=== PATIENT | male | born 1965 | race Hispanic/Latino ===

== ENCOUNTER 2020-08-16 13:00 | Emergency (ER) | payer SELFPAY ==
[2020-08-16] MEDS ORDERED: LORazepam 2 MG/ML VIAL IV PRN ×3 (13:23)
--- NOTE | 2020-08-16 13:28 | Emergency Department Report ---
ED General Adult HPI - General Chief complaint: Altered Mental Status Stated complaint: HEAD INJURY PASSED OUT Time Seen by Provider: 08/16/20 13:15 Source: patient Mode of arrival: Ambulatory Limitations: Altered Mental Status - History of Present Illness Initial comments: Patient is 55-year-old male with no significant past medical history except for chronic alcohol abuse. Patient brought to the emergency room by his friend from work. Patient stated that he does not remember anything except that he went to work this morning and he was in his office. Friends told triage nurse that patient tried to quit alcohol cold turkey today. Patient friend stated that patient fell ground-level and had seizure. Patient stated that he does not remember any of that. Patient is currently shaking however he is alert, oriented x3 in no acute distress. Patient admitted that he tried to quit. He stated that he did not drink today as he usually drinks in the morning. Patient stated that he had 2 DUI before and he have to stop drinking. Patient stated that he had history of some visual hallucination but not today. Patient denied any suicidal or homicidal ideation. No auditory hallucination. - Related Data Allergies Allergy/AdvReac Type Severity Reaction Status Date / Time Penicillins Allergy Hives Verified 08/16/20 13:08 Sulfa (Sulfonamide Allergy Hives Verified 08/16/20 13:09 Antibiotics) ED Review of Systems ROS: Stated complaint: HEAD INJURY PASSED OUT Other details as noted in HPI Comment: All other systems reviewed and negative Constitutional: denies: chills, fever Respiratory: denies: cough, shortness of breath, SOB with exertion, SOB at rest, wheezing Cardiovascular: denies: chest pain, palpitations Gastrointestinal: denies: abdominal pain, nausea, vomiting, diarrhea, constipation, hematemesis, melena, hematochezia Musculoskeletal: denies: back pain Neurological: denies: headache, weakness, numbness, paresthesias, confusion, abnormal gait ED Past Medical Hx - Past Medical History Previous Medical History?: No - Surgical History Past Surgical History?: No ED Physical Exam - General Limitations: Altered Mental Status General appearance: alert, in no apparent distress, anxious - Head Head exam: Present: normocephalic, normal inspection, other (Contusion.) - Eye Eye exam: Present: normal appearance - ENT ENT exam: Present: normal exam, normal orophraynx, mucous membranes moist - Neck Neck exam: Present: normal inspection, full ROM. Absent: tenderness, meningismus, lymphadenopathy, thyromegaly - Respiratory Respiratory exam: Present: normal lung sounds bilaterally - Cardiovascular Cardiovascular Exam: Present: tachycardia - GI/Abdominal GI/Abdominal exam: Present: soft, normal bowel sounds. Absent: distended, tenderness, guarding, rebound, rigid, diminished bowel sounds, organomegaly, mass, bruit, pulsatile mass, hernia - Extremities Exam Extremities exam: Present: normal inspection, full ROM, normal capillary refill. Absent: tenderness, pedal edema, joint swelling, calf tenderness - Back Exam Back exam: Present: normal inspection, full ROM. Absent: CVA tenderness (R), CVA tenderness (L), muscle spasm, paraspinal tenderness, vertebral tenderness - Neurological Exam Neurological exam: Present: alert, oriented X3, CN II-XII intact, normal gait, reflexes normal - Psychiatric Psychiatric exam: Present: anxious. Absent: agitated, homicidal ideation, suicidal ideation - Skin Skin exam: Present: warm, intact, normal color ED Course Vital Signs 08/16/20 13:05 Temperature 98.8 F Pulse Rate 114 H Respiratory 18 Rate Blood Pressure 173/100 O2 Sat by Pulse 95 Oximetry ED Medical Decision Making - Lab Data Result diagrams: 08/16/20 13:40 08/16/20 13:40 - EKG Data -: EKG Interpreted by Ks EKG shows normal: sinus rhythm Rate: tachycardia - EKG Data Interpretation: no acute changes - Radiology Data Radiology results: report reviewed - Medical Decision Making Patient is 55-year-old male with no significant past medical history except for chronic alcohol abuse. Patient brought to the emergency room by his friend from work. Patient stated that he does not remember anything except that he went to work this morning and he was in his office. Friends told triage nurse that patient tried to quit alcohol cold turkey today. Patient friend stated that patient fell ground-level and had seizure. Patient stated that he does not remember any of that. Patient is currently shaking however he is alert, oriented x3 in no acute distress. Patient admitted that he tried to quit. He stated that he did not drink today as he usually drinks in the morning. Patient stated that he had 2 DUI before and he have to stop drinking. Patient stated that he had history of some visual hallucination but not today. Patient denied any suicidal or homicidal ideation. No auditory hallucination. Patient has been observed in the emergency room more than 5 hours with no evidence of seizure. Labs reviewed and is unremarkable except for elevated lactic acid indicating most likely patient had a withdrawal seizure. Patient stated that he is feeling much better. Stated that shaking is completely resolved. Patient vital sign back to normal. Patient CIWA score was 6 and received 2 mg of Ativan. Patient again denying any suicidal ideation. Patient stated that he wanted to follow-up as an outpatient rehab and patient given local program to help with substance abuse. Patient also given a prescription for Librium and advised to return to the ER if he develop any new symptoms. Critical care attestation.: If time is entered above; I have spent that time in minutes in the direct care of this critically ill patient, excluding procedure time. ED Disposition Clinical Impression: Alcohol withdrawal seizure Disposition: DC-01 TO HOME OR SELFCARE Is pt being admited?: No Condition: Stable Instructions: Alcohol Withdrawal (ED) Referrals: PRIMARY CARE, [Primary Care Provider] - 3-5 Days
[2020-08-16 13:54] LABS: Basophils % (Auto) 0.8 % (0.0-1.8); Eosinophils % (Auto) 0.2 % (0.0-4.3); Hematocrit 44.2 % (35.5-45.6); Hemoglobin 15.2 gm/dl (11.8-15.2); Lymphocytes # (Auto) 0.9 K/mm3 (1.2-5.4); Mean Corpuscular HGB Conc 34 % (32-34); Mean Corpuscular Volume 106 fl (84-94); Monocytes # (Auto) 0.5 K/mm3 (0.0-0.8); Monocytes % (Auto) 8.8 % (0.0-7.3); Platelet Count 166 K/mm3 (140-440); Red Blood Count 4.17 M/mm3 (3.65-5.03); Red Cell Distribution Width 16.4 % (13.2-15.2)
[2020-08-16 14:05] LABS: INR 0.89 (0.87-1.13); Partial Thromboplastin Time 24.7 Sec. (24.2-36.6)
[2020-08-16 14:18] LABS: BUN/Creatinine Ratio 20; Blood Urea Nitrogen 16 mg/dL (9-20); Calcium 9.9 mg/dL (8.4-10.2); Hemolysis Index 14
[2020-08-16 14:19] LABS: Alanine Aminotransferase 39 units/L (7-56); Albumin 4.9 g/dL (3.9-5)
--- NOTE | 2020-08-16 14:21 | Cat Scan Report ---
CT head/brain wo con INDICATION: Head injury. TECHNIQUE: Routine CT head without contrast. All CT scans at this location are performed using CT dose reduction for ALARA by means of automated exposure control. COMPARISON: None. FINDINGS: BRAIN / INTRACRANIAL CONTENTS: No acute hemorrhage, brain edema, mass effect, or hydrocephalus. Neli l ngo-white differentiation. No chronic infarct or focal atrophy. Normal brain volume and ventricula r/sulcal size for age. CALVARIUM/SKULL BASE/CRANIOCERVICAL JUNCTION: No evidence of fracture. ORBITS: No significant abnormality of visualized orbits. SINUSES / MASTOIDS: No significant abnormality of visualized sinuses and mastoid air cells. ADDITIONAL FINDINGS: None. IMPRESSION: 1. No acute post-traumatic intracranial abnormality. Signer Name: Meng Mathis MD Signed: 08/16/2020 2:16 PM Workstation Name: [id number]
[2020-08-16] MEDS ORDERED: SODIUM CHLORIDE 0.9% 1000 ML 1,000 ML IV ONE (14:30)
[2020-08-16 14:31] LABS: Bilirubin,Direct < 0.2 mg/dL (0-0.2)
--- NOTE | 2020-08-16 14:34 | XRay Report ---
CHEST 1 VIEW 08/16/2020 2:03 PM INDICATION / CLINICAL INFORMATION: Altered Mental Status. COMPARISON: None available. FINDINGS: SUPPORT DEVICES: None. HEART / MEDIASTINUM: No significant abnormality. LUNGS / PLEURA: No significant pulmonary or pleural abnormality. No pneumothorax. ADDITIONAL FINDINGS: Moderate dextroscoliosis of mid thoracic spine. IMPRESSION: 1. No acute findings. Signer Name: Prabhu Pearce MD Signed: 08/16/2020 2:29 PM Workstation Name: [id number]
[2020-08-16] MEDS ORDERED: THIAMINE 100 MG, FOLIC ACID 1 MG, MULTIPLE VITAMIN INJ, ADULT 10 ML in SODIUM CHLORIDE ... IV ONE (15:00)
[2020-08-16 19:20] VITALS: BP 157/87
== END 2020-08-16 19:21 | disposition home or self-care (01) ==
LOC: ED 13:00
DX: F10.239 Alcohol dependence with withdrawal, unspecified (principal); Z88.0 Allergy status to penicillin; Z88.2 Allergy status to sulfonamides
CPT/HCPCS: 36415; 70450; 71045; 80048; 80076; 82140; 82550; 85025; 85610; 85730; 93005; 96365; 96366; 96375; 99284; J2060; J3411; J7030; 80320; G0480